=== PATIENT | male | born 1950 | race Caucasian/White ===

== ENCOUNTER 2018-12-06 09:30 | Observation (INO) | payer OTHER ==
[~2018-12-06] VITALS: Ht 170.2 cm; Wt 45.8 kg
[2018-12-06] VITALS (14 sets, daily range): BP systolic 124–167; BP diastolic 52–73
[~2018-12-06 09:30] MED LIST: ACCUNEB SO1.25 MG/1 INH; ADVAIR 100-501 EACH INH; ADVAIR 250-501 EACH INH; AEROSPAN8.9 GM IH; AEROSPAN8.9 GM NASAL; ALBUTEROL2.5 MG/0.5 INH; ALDACTONE25 MG PO; APAP500 PO; ARTIFICIAL TEAR15 M3 OPHTHALMIC; ASA5UEC PO; ASPIR 8181 MG PO; ATORVASTATIN CA40 MG PO; ATROVENT15 ML NASAL; AZELASTINE137 MCG/0. NASAL; AZITHROMYCIN 2250 MG PO; CARDIZEM CD120 MG PO; CEFUROXIME500 MG PO; CLARITIN10 MG PO; COLACE100 MG PO; COZAAR100 MG PO; DIAZEPAM 2MG TAB2 MG PO; DILTIAZEM 24HR120 M2 PO; DOXYCYCLINE 10100 MG PO; EFFIENT10 MG PO; FISH OIL 1,001000 M1 PO; HYDROCHLOROTHIA25 M1 PO; HYDROCHLOROTHIA25 M2 PO; HYDROCODONE-AP1 EAC6 PO; HYDROCORTISONE30 G4 TOP; KETOCONAZOLE60 GM TOP; KLOR-CON 1010 MEQ PO; LANOXIN 0.120.125 M1 PO; LANOXIN 0.250.25 M1 PO; LUBRICANT EYE1 EACH OP; MIRALAX17 GM PO; MUCINEX TA600 MG/TA2 PO; MULTIVITAMINS1 EAC5 PO; NITROGLYCERIN0.4 MG SUBLING; NIZORAL120 ML TOP; NORCO 5-325 TA1 EACH PO; OCEAN45 ML NASAL; PERCOCET 5-3251 EACH PO; PREDNISONE 10 M10 MG PO; PREDNISONE 20 M20 MG PO; PREDNISONE 5 MG5 M1 PO; PRILOSEC 20 MG20 MG PO; SIMETHICON CHEW80 M1 PO; SINGULAIR 10 MG10 M1 PO; SPIRONOLACTONE25 M1 PO; TERAZOSIN HCL10 MG PO; TERBINAFINE15 GM TOP; THERA TEARS1 EAC1 OPHTHALMIC; THROAT LOZENGE1 EACH PO; VALIUM5 MG PO; VENTOLIN HFA 1818 GM INH; VITAMIN D31000 UNI2 PO; VITAMINC500 PO; ZOCOR80 MG PO; [UNRECOGNIZED DRUG - OTHER] PO; [UNRECOGNIZED DRUG - OTHER] PO
[2018-12-06 11:02] LABS: HEMATOCRIT 40.4 % (42.0-52.0); HEMOGLOBIN 13.3 gm/dL (14.0-18.0); MCH 25.2 pg (26.0-34.0); MCHC 32.8 g/dL (28.0-37.0); MCV 76.9 fL (80.0-100.0); MPV 7.1 fl. (7.2-11.1); RBC 5.26 mil/uL (4.50-6.00); RDW-CV 16.3 % (10.5-14.5)
[2018-12-06 11:11] LABS: APTT 26.2 Seconds (25.0-31.3); PROTIME 10.2 Seconds (9.20-11.50)
[2018-12-06 11:13] LABS: ANION GAP 10 mmol/L (7-16); BUN 10 mg/dL (7-18); CALCIUM 9.7 mg/dL (8.5-10.1); CHLORIDE 102 mmol/L (98-107); CO2 28 mmol/L (21-32); GLUCOSE 131 mg/dL (70-99); POTASSIUM 3.6 mmol/L (3.5-5.1); SODIUM 140 mmol/L (136-145)
[2018-12-06 11:17] LABS: ALBUMIN 3.8 g/dL (3.4-5.0); ALKALINE PHOSPHATASE 76 U/L (46-116); CHOLESTEROL 122 mg/dL (<200); HDL CHOLESTEROL 35 mg/dL (>40); LDL CHOLESTEROL 56 mg/dL (<100); SGOT 19 U/L (15-37); SGPT 32 U/L (30-65); TC:HDL 3.5 Ratio (Not establshd); TOTAL BILIRUBIN 0.6 mg/dL (<0.1-1.0); TOTAL PROTEIN 7.9 g/dL (6.4-8.2); TRIGLYCERIDE 156 mg/dL (<150); VLDL 31 mg/dL (<40)
[2018-12-06 11:18] LABS: SERUM ASSESSMENT Clear
[2018-12-06] MEDS ORDERED: VERAPAMIL E.R240 M1 PO (11:34)
--- NOTE | 2018-12-06 18:56 | NUR ---
PT ARRIVED TO ROOM 214 AT APPROX 1745. PT A/O X4, C/O PAIN TO BACK AND HEAD, PT RECEIVED TYLENOL IN FRENCH DRAWER PER RN. PT STATES HE ONLY TAKES TYLENOL AT HOME. NEW ORDERS RECIEVED FOR HOME MEDS. PT EDUCATED ON POST CATH PROCUEDURES. BEDREST UNTILL 1999 TONIGHT. PT VERBALIZED UNDERSTANDING. RIGHT GROIN DRESSING C/D/I. NO HEMATOMA NOTED. PT USES CALL LIGHT APPROPRIATLY WILL CONTINUE TO MONITOR.
[2018-12-07 04:00] VITALS: BP 130/64
[2018-12-07 05:09] LABS: HEMATOCRIT 34.2 % (42.0-52.0); MCH 25.2 pg (26.0-34.0); MCHC 33.1 g/dL (28.0-37.0); MCV 76.1 fL (80.0-100.0); MPV 6.9 fl. (7.2-11.1); RBC 4.49 mil/uL (4.50-6.00); RDW-CV 16.4 % (10.5-14.5); WBC 7.8 thou/uL (4.0-11.0)
--- NOTE | 2018-12-07 05:12 | NUR ---
PT A&O X4, VSS, MAINTAINING O2 SAT ON RA. POST CATH TO R GROIN, DRESSING C/D/I. PT HAD C/O AT START OF SHIFT TO R GROIN, BACK AND HEAD WITH RELIEF WITH TYLENOL. NO CONCERNS VOICED BY PT, ANTICIPATED DC TOMORROW. CURRENTLY ASLEEP IN BED, CALL LIGHT WITHIN REACH, ALL NEEDS HAVE BEEN MET AT THIS TIME.
[2018-12-07 05:20] LABS: HEMOGLOBIN 11.3 gm/dL (14.0-18.0)
[2018-12-07 05:32] LABS: ALBUMIN 2.9 g/dL (3.4-5.0); CALCIUM 8.9 mg/dL (8.5-10.1); CREATININE 0.7 mg/dL (0.6-1.3); POTASSIUM 3.6 mmol/L (3.5-5.1); TOTAL BILIRUBIN 0.8 mg/dL (<0.1-1.0); TOTAL PROTEIN 6.3 g/dL (6.4-8.2)
[2018-12-07 05:43] LABS: TROPONIN-I LEVEL 1.52 ng/mL (<0.06)
[2018-12-07 10:50] VITALS: BP 143/68
--- NOTE | 2018-12-07 11:07 | CARD ---
[address] [address] CARDIAC CATH REPORT Name: WESLEY GONZALES Room: [address] Aniya Alonso#: [id number] Admission: 12/06/18 Attend Phys: Norman Stanley MD, Discharge: Date of : 46 Report #: [id number] THIS REPORT FOR: //name// APPROVED REPORT Study performed: 12/06/2018 11:27:04 Patient Details The patient is a 68 year-old male Event Personnel Norman Stanley Manager Material, Aisha Logan RN RN, Efra Waters PARARESCUE MANAGER Monitor, , Asa Knott (R) Erik Brunson Becki RTR Monitor Procedures Performed Art Access - R femoral artery* Left Heart Cath w/or w/o Coronaries [id number] [facility] RACIEL w/Atherectomy Single RCA [id number] [facility] Indication Unstable angina , Positive stress test Risk Factors Hypercholesterolemia, Hypertension Previous Procedures/Diagnoses Previous PCI Admission/Lab Medications/Medications given during procedure Midazolam (Versed) IV 3 mg total, Fentanyl IV 50 mcg total, Lidocaine Subcut 15 ml, Angiomax Drip IV 34.3 ml per hr, Effient PO 60 mg, Aspirin PO 162 mg Procedure Narrative The patient was brought electively to the Cardiac Catheterization Laboratory and was prepped and draped in a sterile manner. The right femoral was infiltrated with 2% Lidocaine subcutaneous anesthesia. A Thornton 6 FR sheath was inserted into the right femoral artery. Coronary angiography was performed using coronary diagnostic catheters. The right coronary system was accessed and visualized with a 6F JR4 catheter. The left coronary system was accessed and visualized with a 6F JL4 catheter. The left ventricle was accessed and visualized with a 6F Pigtail catheter. Left ventricular/[place] [address] CARDIAC CATH REPORT Name: WESLEY GONZALES Room: [address]#: [id number] Admission: 12/06/18 Attend Phys: Norman Stanley MD, Discharge: Date of : 48 Report #: [id number] Valve gradient assessed via catheter pullback. Left ventriculogram was performed in HOOKER projection. Pre-demployment femoral angiogram was performed . Closure device was deployed with a 6 Fr Angioseal STS 6Fr. The patient tolerated the procedure well and there were no complications associated with the procedure. There was no hematoma. Intraoperative Conscious Sedation Sedation start time: 12:02 Case end Time: 12:50 Fentanyl 50 mcg Versed 3 mg Fluoro Time: 12.3 minutes Dose: DAP 161909 cGycm2 1896 mGy Contrast Type and Amount: Visipaque 330 ml Diagnostic Cath Left Main 10% distal narrowing LAD 30% mid LAD and first diagonal narrowing Circumflex Small nondominant vessel with 0% narrowing Right Coronary Large dominant vessel with 90% mid vessel in-stent restenosis and 40% distal narrowing Left Ventriculography The left ventricle is normal in size with normal contractility. The left ventricular ejection fraction is estimated to be 55-60%. Left ventricular wall motion abnormalities are not present. There is no mitral insufficiency. Hemodynamics The aortic pressure is 155/55 mmHg with a mean of 85 mmHg. The left ventricular pressure is 151/-1 mmHg with a mean of mmHg. The left ventricular end diastolic pressure is 9 mmHg. There was no gradient across the aortic valve upon pullback. PCI Technique Lesion Anticoagulation was achieved with Angiomax. Patient was preloaded with Angiomax IV 15 mg per kg. Percutaneous coronary intervention was performed on the mid right coronary artery. A 6FR XBRCA Guide Catheter was used to engage the RCA ostium. A IG: BMW 190cm Interventional Guidewire was used to cross the lesion. BALLOON DILATION A Balloon catheter Trek RX 2.75 X 12 was inserted and inflated up to 18.00atm for 20seconds. TREK RX 3.0 X 12 BALLOON. 14 SECONDS, 18 BERNARDO. 12 SECONDS, 18 BERNARDO. ANGIOSCULPT PTCA 3.0 X 10 BALLOON. 24 SECONDS, 10 [place] [address] CARDIAC CATH REPORT Name: WESLEY GONZALES Room: [address] Aniya M.RTr#: [id number] Admission: 12/06/18 Attend Phys: Norman Stanley MD, Discharge: Date of : 46 Report #: [id number] BERNARDO. 28 SECONDS, 12 BERNARDO. 18 SECONDS, 12 BERNARDO. STENT DEPLOYMENT A drug-eluting stent 3.0 X 13 ORSIRO was inserted and inflated up to 12atm for 11seconds. Additional Inflation: 12atm for 9seconds. POST STENT DEPLOYMENT BALLOON DILATION A Balloon catheter NC Trek RX 3.25 X 12 was inserted and inflated up to 16.00atm for 11seconds. Additional Inflation: 18.00atm for 11seconds. Final angiography reveals 10 % stenosis with YUKO 3 flow. Conclusion #1 significant coronary artery disease characterized by the following: A 10% distal left main coronary artery narrowing B 30% mid LAD and first diagonal narrowing C large dominant right coronary artery with 90% mid right coronary in-stent restenosis and 40% distal narrowing #2 normal left ventricular systolic function, estimate ejection fraction 55-60% without segmental wall motion abnormalities #3 mild systemic systolic hypertension #4 successful angioplasty atherotomy/atherectomy and stenting of the mid right coronary artery with 10% residual narrowing and YUKO-3 flow the distal vessel Recommendations Cardiac Risk Reduction Program Aggressive Medical Therapy Medications Administered Aspirin (any) [place] [address] CARDIAC CATH REPORT Name: WESLEY GONZALES Room: [address] Aniya Alonso#: [id number] Admission: 12/06/18 Attend Phys: Norman Stanley MD, Discharge: Date of : 48 Report #: [id number] Diagnostic Cath Approved by: Norman Stanley MD Date/Time: 12/07/2018 11:05:51 <ELECTRONICALLY SIGNED> By: Norman Stanley MD, [facility] 12/07/18 1107 1107Norman Stanley MD, [facility] /INF
--- NOTE | 2018-12-07 11:22 | D ---
[address] [address] DISCHARGE SUMMARY Name: WESLEY GONZALES MARIANA Room: [address] Aniya Alonso#: [id number] Admission: 12/06/18 Attend Phys: Norman Stanley MD, Discharge: Date of : 46 Report #: [id number] THIS REPORT FOR: //name// CC: Norman Reese DATE OF SERVICE: 12/07/2018 FINAL DISCHARGE DIAGNOSES: 1. Abnormal nuclear stress test. 2. Unstable angina. 3. Coronary artery disease. 4. Status post percutaneous coronary intervention to the right coronary artery on 12/06/2018. 5. Hypertension. 6. Hyperlipidemia. PROCEDURES: On 12/06/2018 -- left heart catheterization, selective coronary arteriography and atherectomy with stenting of the mid right coronary artery. The patient is a 68-year-old male with defined coronary artery disease, status post multiple prior percutaneous coronary interventions including to the right coronary artery and LAD. Recently, a nuclear stress test with inducible inferior ischemia as well as some area of scarring. He also has experienced chest discomfort similar to his prior angina following a pattern of increased frequency and severity. There is underlying hypertension, hyperlipidemia and weight excess. In this context, I performed cardiac catheterization on 12/07/2018 which revealed 90% mid right coronary in-stent restenosis in an area with an area of heavy induration and calcification. There was 30% mid LAD and first diagonal narrowing noted. Given this data, I elected to proceed with percutaneous coronary intervention with atherotomy/atherectomy with a 3.0 x 10 mm AngioSculpt balloon inflated to 12-14 atmospheres, followed by deployment of a 3.0 x 13 mm Orsiro drug-eluting stent in the mid right coronary artery with 10% residual narrowing and YUKO 3 flow of the distal vessel. The patient did well post-procedurally. There was good hemostasis at the right femoral site of catheterization. LABORATORY DATA: On 12/07/2018 revealed sodium of 141, potassium 3.6, BUN 10, creatinine 0.7, glucose 109. Hemoglobin 11.3, white blood cell count 7800 with 210,000 platelets. Troponin jessy minimally to 1.52. [place] [address] DISCHARGE SUMMARY Name: WESLEY GONZALES Room: [address]#: [id number] Admission: 12/06/18 Attend Phys: Norman Stanley MD, Discharge: Date of : 46 Report #: [id number] The patient ambulated in the hallways without difficulty. He was discharged to home on the following medications: Acetaminophen 1000 mg t.i.d. as needed, ascorbic acid 500 mg daily, aspirin 81 mg daily, atorvastatin 40 mg at bedtime, cholecalciferol 1000 units daily, hydrochlorothiazide 25 mg daily, loratadine 10 mg daily, losartan 100 mg daily, Singulair 10 mg at bedtime, omeprazole 20 mg daily, potassium chloride 40 mEq daily, prasugrel or Effient 10 mg daily, terazosin 10 mg at bedtime, verapamil extended release 240 mg daily, albuterol 1 inhalation 4 times a day as needed, albuterol sulfate, Ventolin 2 puffs 4 hours as needed, diazepam 2 mg b.i.d. p.r.n., Aerospan 2 sprays nasally b.i.d. p.r.n., Atrovent 1 spray nasally 4 times a day p.r.n., and p.r.n. sublingual nitroglycerin. The patient is scheduled to see my nurse practitioner, Ruba Jiménez on 12/15/2018 and myself and then in 2 to 3 months. The initial visit will be added at 10:30 a.m. Thus, the patient is discharged to home in stable condition on the aforementioned medications with followup as iterated above. <ELECTRONICALLY SIGNED> By: Norman Stanley MD, [facility] 12/07/18 1122 0936 1042Joesperanza Stanley MD, FAC /nt
--- NOTE | 2018-12-07 12:13 | NUR ---
ASSUMED PT CARE AROUND 0700. PT NOTED TO A/OX4. PT IS ASSESSED ET DOCUMENTED IN CHART. VSS, SR ON CARD MONITOR, HOURLY ROUNDS COMPLETED, MEDS GIVEN PER MAY. DISCHARGE PACKET REVIEWED ET SIGNED BY PT. TELE MONITOR ET IV REMOVED PRIOR TO DISCHARGE. PT DISCHARGE TO HOME VIA WIFES VEHICLE WITH THE HELP OF PT TECH TAKING HIM DOWN IN HOSPITAL W/C.
--- NOTE | 2018-12-07 12:26 | NUR ---
Nutrition: Pt admitted for stress test. Seen for low BMI. Per [employer], wt is usually ~212-220#. Today's wt is recorded as 101#, but likely in error, and is 101kg (220#). Likely disch tomorrow. Defer further assesssment.
--- NOTE | 2018-12-07 15:01 | EKG ---
[place] [address] ELECTROCARDIOGRAM REPORT Name: WESLEY GONZALES Room: [address]#: [id number] Admission: 12/06/18 Attend Phys: Norman Stanley MD, Discharge: 12/07/18 Date of : 46 Report #: [id number] THIS REPORT FOR: //name// [facility] Test Date: 2018-12-06 Test Time: 11:09:42 Pat Name: WESLEY GONZALES Department: Room: 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1950 Requested By: Norman Stanley Order Number: [id number] Gil MD: Norman Stanley Measurements Intervals [place] Rate: 88 P: 38 WI: 181 QRS: -26 QRSD: 99 T: 13 QT: 377 QTc: 457 Interpretive Statements Sinus rhythm Multiple ventricular premature complexes Abnormal R-wave progression, late transition LVH with secondary repolarization abnormality Compared to ECG 03/07/2017 08:12:15 Ventricular premature complex(es) now present Left ventricular hypertrophy now present Early repolarization now present Electronically Signed On 12-07-2018 15:01:42 CDT by Norman Stanley [email or web address] <ELECTRONICALLY SIGNED> By: Norman Stanley MD, [facility] 12/07/18 1501 1109 1109 Norman Stanley MD, [facility] /EPI
--- NOTE | 2018-12-07 15:03 | EKG ---
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1950 Requested By: Norman Stanley Order Number: [id number] Gil MD: Norman Stanley Measurements Intervals [place] Rate: 80 P: 41 VT: 195 QRS: -23 QRSD: 100 T: 1 QT: 412 QTc: 476 Interpretive Statements Sinus rhythm LVH with secondary repolarization abnormality Borderline prolonged QT interval Compared to ECG 03/07/2017 08:12:15 Left ventricular hypertrophy now present Early repolarization now present Electronically Signed On 12-07-2018 15:03:12 CDT by Norman Stanley [email or web address] <ELECTRONICALLY SIGNED> By: Norman Stanley MD, [facility] 12/07/18 1503 1324 1324 Norman Stanley MD, [facility] /EPI
--- NOTE | 2018-12-07 16:56 | EKG ---
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1950 Requested By: Norman Stanley Order Number: [id number] Gil MD: Vince Sena Measurements Intervals [place] Rate: 89 P: 37 PA: 188 QRS: -22 QRSD: 96 T: 0 QT: 378 QTc: 460 Interpretive Statements Sinus rhythm LVH by voltage Compared to ECG 03/07/2017 08:12:15 Left ventricular hypertrophy now present Early repolarization now present Electronically Signed On 12-07-2018 16:56:14 CDT by Vince Sena [email or web address] <ELECTRONICALLY SIGNED> By: Vince Sena MD, [facility] 12/07/18 3566 0904 0904 Vince Sena MD, [facility] /EPI
== END 2018-12-07 12:15 | disposition home or self-care (01) ==
LOC: M.CL 09:30 → M.TBA-CV 13:05 → M.2W 13:05
PROVIDERS: ADMIT Internal Medicine
DX: I25.110 Atherosclerotic heart disease of native coronary artery with unstable angina pectoris (principal); I10 Essential (primary) hypertension; E78.5 Hyperlipidemia, unspecified; I25.2 Old myocardial infarction; I65.23 Occlusion and stenosis of bilateral carotid arteries; I49.3 Ventricular premature depolarization; Z79.82 Long term (current) use of aspirin; Z79.899 Other long term (current) drug therapy

== ENCOUNTER 2020-08-31 10:38 | Emergency (ER) | payer OTHER ==
[~2020-08-31] VITALS: Ht 170.2 cm; Wt 99.3 kg
[~2020-08-31 10:38] MED LIST changes: +VERAPAMIL E.R240 M1 PO
[2020-08-31] MEDS ORDERED: AZELASTINE205.5 MCG/ NARES (11:01)
[2020-08-31] MEDS ORDERED: FERROUS GLUCON324 M2 PO (11:02)
[2020-08-31] MEDS ORDERED: CULTURELLE KID1 EAC1 PO (11:03)
[2020-08-31 11:29] LABS: ABSOLUTE EOSINOPHILS 0.2 thou/uL (0.0-0.7); ABSOLUTE LYMPHOCYTES 0.4 thou/uL (0.8-5.3); ABSOLUTE MONOCYTES 0.6 thou/uL (0.0-1.2); ABSOLUTE NEUTROPHILS 4.4 thou/uL (1.6-8.1); BASOPHILS 0.6 %; EOSINOPHILS 3.3 %; HEMATOCRIT 33.2 % (42.0-52.0); HEMOGLOBIN 11.1 gm/dL (14.0-18.0); LYMPHOCYTES 7.9 %; MCH 24.5 pg (26.0-34.0); MCHC 33.4 g/dL (28.0-37.0); MCV 73.1 fL (80.0-100.0); MONOCYTES 10.5 %; MPV 6.5 fl. (7.2-11.1); NUCLEATED RBCS 0 /100WBC; PLATELET COUNT* 198 thou/uL (150-400); POLYS 77.7 %; RBC 4.54 mil/uL (4.50-6.00); RDW-CV 17.1 % (10.5-14.5); WBC 5.7 thou/uL (4.0-11.0)
[2020-08-31 11:39] LABS: CALCIUM 8.9 mg/dL (8.5-10.1); CREATININE 1.1 mg/dL (0.6-1.3)
[2020-08-31 11:50] LABS: ALBUMIN 2.4 g/dL (3.4-5.0); TOTAL BILIRUBIN 1.2 mg/dL (<0.1-1.0)
[2020-08-31 11:58] LABS: BE 0.2 mmol/L (-2 to +3); PCO2 37.8 mmHg (35.0-45.0); pH 7.427 (7.340-7.450)
[2020-08-31 11:59] LABS: PO2 198.7 mmHg (75.0-100.0)
[2020-08-31] MEDS ORDERED: DOXYCYCLINE 10100 MG PO (13:05)
[2020-08-31 13:31] VITALS: BP 169/71
--- NOTE | 2020-08-31 16:06 | EKG ---
[place] [address] ELECTROCARDIOGRAM REPORT Name: WESLEY GONZALES Room: [facility]#: [id number] Admission: 08/31/20 Attend Phys: Discharge: 08/31/20 Date of : 46 Date of Service: 08/31/20 1044 Report #: [id number] THIS REPORT FOR: //name// [facility] ED Test Date: 2020-08-31 Test Time: 10:44:22 Pat Name: WESLEY GONZALES Department: Room: Gender: Lacemaker: : 1950 Requested By: Tip Amador Order Number: [id number] MD: Brijesh Guzman Measurements Intervals [place] Rate: 97 P: 35 [place]: 181 QRS: -25 QRSD: 99 T: 109 QT: 326 QTc: 414 Interpretive Statements Sinus rhythm Abnormal R-wave progression, late transition LVH with secondary repolarization abnormality Compared to ECG 12/07/2018 09:04:36 no change Electronically Signed On 08-31-2020 16:05:52 CDT by Brijesh Guzman [email or web address] <ELECTRONICALLY SIGNED> By: Brijesh Guzman MD, FAC 08/31/20 1605 1044 1044 Brijesh Guzman MD, [facility] /EPI
== END 2020-08-31 13:33 | disposition home or self-care (01) ==
LOC: M.ERS 10:38
PROVIDERS: Emergency Medicine
DX: J18.9 Pneumonia, unspecified organism (principal); Z20.822 Contact with and (suspected) exposure to COVID-19; R53.1 Weakness; I10 Essential (primary) hypertension; J45.909 Unspecified asthma, uncomplicated; E11.9 Type 2 diabetes mellitus without complications; K21.9 Gastro-esophageal reflux disease without esophagitis; Z88.1 Allergy status to other antibiotic agents; Z88.2 Allergy status to sulfonamides; Z79.899 Other long term (current) drug therapy